=== PATIENT | female | born 1985 | race Caucasian/White ===

== ENCOUNTER 2016-10-05 19:38 | Emergency (ER) | payer OTHER ==
[2016-10-05 19:48] VITALS: BP 122/74; PULSE 81; TEMP 98.4; BMI 34.6
--- NOTE | 2016-10-05 20:20 | PDOC ---
[id number] PROBLEM Time Seen by Provider: 10/05/16 20:19 History Source: Patient Exam Limitations: No Limitations - History of Present Illness Initial Comments: 10/05/16 20:20 CHIEF COMPLAINT: Pelvic pain HISTORY OF PRESENT ILLNESS: This is a 31-year-old female with history of rheumatoid arthritis on daily prednisone who presents to the ED complaining of right-sided pelvic pain and dysuria for one week. She denies fevers/chills, back pain, nausea/vomiting, or any other symptoms. She is uncertain whether she may be . She does report white, non-malodorous vaginal discharge but states she has not had any today. Vital signs on arrival are unremarkable. REVIEW OF SYSTEMS: GENERAL/CONSTITUTIONAL: No fever or chills. No weakness. No weight change. HEAD, EYES, EARS, NOSE AND THROAT: No change in vision. No ear pain or discharge. No sore throat. CARDIOVASCULAR: No chest pain or palpitations. RESPIRATORY: No cough, wheezing, or shortness of breath. GASTROINTESTINAL: No nausea, vomiting, diarrhea or constipation. GENITOURINARY: See HPI. MUSCULOSKELETAL: Right thumb pain. SKIN: No rash or easy bruising. NEUROLOGIC: No headache, vertigo, loss of consciousness, or loss of sensation. PSYCHIATRIC: No depression or anxiety. ENDOCRINE: No increased thirst. No abnormal weight change. HEMATOLOGIC/LYMPHATIC: No anemia, easy bleeding, or history of blood clots. ALLERGIC/IMMUNOLOGIC: No hives or skin allergy. No latex allergy. PHYSICAL EXAM: GENERAL: The patient is awake, alert, and fully oriented, in no acute distress. HEAD: Normal with no signs of trauma. ENT: Pupils equal, round and reactive to light, extraocular movements intact, sclera anicteric, conjunctiva clear. Neck supple. LUNGS: Clear to auscultation bilaterally. Normal excursion. No respiratory distress or use of accessory muscles. CV: RRR, S1/S2, no MRG. Cap refill < 2 sec. ABDOMEN: Soft, non-distended, non-tender. EXTREMITIES: [place] neck and boutonniere deformities. NEUROLOGICAL: Normal speech, normal gait. CN II-XII grossly intact. PSYCH: Normal mood, normal affect. SKIN: Warm, dry, normal turgor, no rashes or lesions noted. QUALITY ASSURANCE DIRECTOR: Normal external exam. Mild right adnexal tenderness. White, thick, non- malodorous vaginal discharge. No CMT. Past History - Past Medical History Allergies/Adverse Reactions: Allergies Allergy/AdvReac Type Severity Reaction Status Date / Time No Known Allergies Allergy Verified 10/05/16 19:45 Home Medications: Ambulatory Orders Levetiracetam [Keppra Xr -] 500 mg PO DAILY 07/24/16 Methotrexate [Mexate -] 2.5 mg PO DAILY 07/24/16 Prednisone 5 mg PO DAILY 07/24/16 Meclizine HCl 25 mg PO TID PRN #21 tablet 07/25/16 Folic Acid 0 mg PO ASDIR 10/05/16 Ibuprofen 600 mg PO Q6H PRN #30 tablet 10/05/16 Asthma: No Cancer: No Cardiac Disorders: No Diabetes: No HTN: No Suicide Attempt (Hx): No Seizures: Yes (epilepsy) Thyroid Disease: No - Reproductive History (#): 2 Para: 2 Cervical CA: No Dysfunctional Uterine Bleeding: No Ectopic : No Endometrial CA: No Polycystic Ovaries: No Therapeutic (s) & number: No Tubal Ligation: No Spontaneous : 0 - Immunization History Immunization Up to Date: No - Psycho/Social/Smoking Cessation Hx Anxiety: No Suicidal Ideation: No Smoking Status: No Smoking History: Never smoked Have you smoked in the past 12 months: No Number of Cigarettes Smoked Daily: 0 Hx Alcohol Use: No Drug/Substance Use Hx: No Substance Use Type: None Hx Substance Use Treatment: No *Physical Exam - Vital Signs Last Vital Signs Temp Pulse Resp BP Pulse Ox 98.4 F 81 18 122/74 100 10/05/16 19:46 10/05/16 19:46 10/05/16 19:46 10/05/16 19:46 10/05/16 19:46 Medical Decision Making - Medical Decision Making 10/05/16 23:23 A/P: 31 year old female with 1) Right thumb pain -Suspect secondary to RA -Xray wet read: no fracture/dislocation of right thumb -Motrin, ice -Finger splint for comfort, and 2) Pelvic pain -U/s reviewed: 2cm right ovarian cyst; IUD in lower uterine segment toward cervical canal -Discussed both of these findings with patient and she will follow up with her commercial sales manager -Treated with diflucan x 1 for suspected vaginal candidiasis -GC/CT sent *DC/Admit/Observation/Transfer Diagnosis at time of Disposition: Pain of right thumb, Pelvic pain, Vaginal candidiasis - Discharge Dispostion Disposition: HOME Condition at time of disposition: Stable Admit: No - Prescriptions Prescriptions: Ibuprofen 600 mg PO Q6H PRN #30 tablet PRN Reason: Pain - Referrals Referrals: Zhen Villarreal MD [Staff Physician] - (lip cutter and scorer) - Patient Instructions Printed Discharge Instructions: DI for Rheumatoid Arthritis, DI for Vaginal Yeast Infection Additional Instructions: -You were given a one-time dose of antibiotics for vaginal yeast infection -You have a right ovarian cyst which may be causing your pain -Follow up with your crib clerk (or ours, referral enclosed) about this and also to have the position of your IUD evaluated as discussed -Take ibuprofen as needed for pain and wear the finger splint for comfort -Return here for any new or worsening symptoms Print Language: VINCENTIAN
[2016-10-05 20:39] LABS: URINE APPEARANCE CLEAR; URINE BILIRUBIN NEGATIVE (NEGATIVE); URINE BLOOD NEGATIVE (NEGATIVE); URINE COLOR YELLOW; URINE GLUCOSE (UA) NEGATIVE (NEGATIVE); URINE KETONE NEGATIVE (NEGATIVE); URINE LEUK ESTERASE NEGATIVE (NEGATIVE); URINE NITRITE NEGATIVE (NEGATIVE); URINE PROTEIN NEGATIVE (NEGATIVE); URINE UROBILINOGEN NEGATIVE E.U./dl (0.2-1.0)
[2016-10-05] MEDS ORDERED: IBUPROFEN 600 MG TABLET (FP) PO ONE ×2 (20:56→21:37)
[2016-10-05] MEDS ORDERED: FLUCONAZOLE 100 MG TABLET (UD) PO ONE (21:56)
[2016-10-05] MEDS ORDERED: FLUCONAZOLE 100 MG TABLET (UD) ONE (22:03)
== END 2016-10-05 22:40 | disposition home or self-care (01) ==
LOC: JER 19:38 → JERFT 19:38
DX: B37.3 Candidiasis of vulva and vagina (principal); N83.291 Other ovarian cyst, right side; M06.841 Other specified rheumatoid arthritis, right hand; Z86.69 Personal history of other diseases of the nervous system and sense organs
CPT/HCPCS: 36415; 73130-TC-RT; 76830-TC; 76856-TC; 81003; 84703; 87086; 87491; 87591; 99281-25

== ENCOUNTER 2017-04-12 19:38 | Emergency (ER) | payer OTHER ==
[2017-04-12 19:48] VITALS: BMI 34.9
[2017-04-12] MEDS ORDERED: MECLIZINE HCL 25 MG TABLET (FP) PO STA (20:17)
--- NOTE | 2017-04-12 20:17 | PDOC ---
History of Present Illness - General History Source: Patient Exam Limitations: No Limitations - History of Present Illness Initial Comments: 04/12/17 20:29 The patient is a 32 year old female with significant past medical history of rheumatoid arthritis, seizure disorder, Mnire's disease on meclizine who presents to the ED for vertigo-like symptoms that began earlier today. Patient reports unsteadiness and dizziness, which she describes as the room spinning. States her symptoms are consistent with her usual vertigo episodes. She also reports 2 days of abdominal discomfort. Patient describes discomfort as a pressure-like sensation starting from her pelvic region and radiating to her back. State she believes it is related to kidney stones because she went to an outside hospital 2 days ago, where they did a urinalysis and test that came out negative. Denies dysuria, hematuria, urgency, or frequency. Denies nausea, vomiting, or diarrhea. The patient denies fever, chills, cough, SOB, chest pain, and palpitations. Allergies: NKDA Social History: No alcohol, tobacco, or drug use reported. Past Surgical History: x2 PCP: N/A <Alla Connolly - Last Filed: 04/12/17 20:29> - General History Source: Patient <Mamadou Escamilla - Last Filed: 04/12/17 22:53> - General Chief Complaint: Lightheaded Stated Complaint: PAIN Time Seen by Provider: 04/12/17 20:11 Past History <Alla Connolly - Last Filed: 04/12/17 20:29> - Past Medical History Asthma: No Cancer: No Cardiac Disorders: No Diabetes: No HTN: No Suicide Attempt (Hx): No Seizures: Yes (epilepsy) Thyroid Disease: No Other medical history: minires disease, arthritis - Reproductive History (#): 2 Para: 2 Cervical CA: No Dysfunctional Uterine Bleeding: No Ectopic : No Endometrial CA: No Polycystic Ovaries: No Therapeutic (s) & number: No Tubal Ligation: No Spontaneous : 0 - Immunization History Immunization Up to Date: No - Psycho/Social/Smoking Cessation Hx Anxiety: No Suicidal Ideation: No Smoking Status: No Smoking History: Never smoked Have you smoked in the past 12 months: No Number of Cigarettes Smoked Daily: 0 Hx Alcohol Use: No Drug/Substance Use Hx: No Substance Use Type: None Hx Substance Use Treatment: No <Mamadou Escamilla - Last Filed: 04/12/17 22:53> - Past Medical History Allergies/Adverse Reactions: Allergies Allergy/AdvReac Type Severity Reaction Status Date / Time No Known Allergies Allergy Verified 04/12/17 19:45 Home Medications: Ambulatory Orders Levetiracetam [Keppra Xr -] 700 mg PO DAILY 07/24/16 Methotrexate [Mexate -] 2.5 mg PO DAILY 07/24/16 Meclizine HCl 25 mg PO TID PRN #21 tablet 07/25/16 Folic Acid 0 mg PO ASDIR 10/05/16 Ibuprofen 600 mg PO Q6H PRN #30 tablet 10/05/16 Adalimumab [Humira] 40 mg SQ WEEKLY 04/12/17 Review of Systems - Review of Systems Able to Perform ROS?: Yes Comments:: 04/12/17 20:30 CONSTITUTIONAL: Absent: fever, no chills, no fatigue EYES: Absent: visual changes ENT: Absent: ear pain, no sore throat CARDIOVASCULAR: Absent: chest pain, no palpitations RESPIRATORY: Absent: cough, no SOB GI: +pelvic discomfort radiating to the back Absent: no nausea, no vomiting, no constipation, no diarrhea GENITOURINARY: Absent: dysuria, no frequency, no hematuria MUSCULOSKELETAL: Absent: no arthralgia, no myalgia SKIN: Absent: rash NEURO: +dizziness and unsteadiness Absent: headache <Alla Connolly - Last Filed: 04/12/17 20:29> *Physical Exam - Vital Signs Last Vital Signs Temp Pulse Resp BP Pulse Ox 98.6 F 68 18 110/54 99 04/12/17 19:41 04/12/17 19:41 04/12/17 19:41 04/12/17 19:41 04/12/17 19:41 - Physical Exam Comments: 04/12/17 20:30 GENERAL: Well-appearing, well-nourished. No apparent distress. HEENT: Normocephalic, atraumatic. PERRL, EOM intact. CARDIOVASCULAR: Normal S1, S2. Regular rate and rhythm. PULMONARY: Clear to auscultation bilaterally. ABDOMEN: Soft, non-distended, non-tender. EXTREMITIES: Normal ROM in all four extremities. No gross deformities. SKIN: Warm, dry. No rash NEUROLOGICAL: No focal neurological deficits. <Alla Connolly - Last Filed: 04/12/17 20:29> - Vital Signs Last Vital Signs Temp Pulse Resp BP Pulse Ox 98.6 F 68 18 110/54 99 04/12/17 19:41 04/12/17 19:41 04/12/17 19:41 04/12/17 19:41 04/12/17 19:41 <Mamadou Escamilla - Last Filed: 04/12/17 22:53> Medical Decision Making - Medical Decision Making 04/12/17 22:53 Dr. Escamilla: The scribe's documentation has been prepared under my direction and personally reviewed by me in its entirery. I confirm that the note above accurately reflects all work, treatment, procedures, and medical decision making performed by me. <Mamadou Escamilla - Last Filed: 04/12/17 22:53> *DC/Admit/Observation/Transfer - Attestations Scribe Attestion: 04/12/17 20:30 Documentation prepared by Alla Connolly, acting as medical facilities section director for Mamadou Escamilla MD/DO. <Alla Connolly - Last Filed: 04/12/17 20:29> - Discharge Dispostion Admit: No <Mamadou Escamilla - Last Filed: 04/12/17 22:53> Diagnosis at time of Disposition: Abdominal pain Qualifiers: Abdominal location: generalized Qualified Code(s): R10.84 - Generalized abdominal pain Constipation Qualifiers: Constipation type: unspecified constipation type Qualified Code(s): K59.00 - Constipation, unspecified - Discharge Dispostion Disposition: HOME Condition at time of disposition: Stable - Referrals Referrals: STAFF,NOT ON [Primary Care Provider] - Renato Gastelum MD [Staff Physician] - - Patient Instructions Printed Discharge Instructions: DI for Constipation Print Language: AZERI
[2017-04-12] MEDS ORDERED: MECLIZINE HCL 25 MG TABLET (FP) ONE (20:25)
[2017-04-12 20:49] LABS: URINE APPEARANCE CLEAR; URINE BILIRUBIN NEGATIVE (NEGATIVE); URINE BLOOD NEGATIVE (NEGATIVE); URINE COLOR LTYELLOW; URINE GLUCOSE (UA) NEGATIVE (NEGATIVE); URINE KETONE NEGATIVE (NEGATIVE); URINE NITRITE NEGATIVE (NEGATIVE); URINE PROTEIN NEGATIVE (NEGATIVE); URINE UROBILINOGEN NEGATIVE mg/dL (0.2-1.0)
[2017-04-12 20:59] LABS: URINE LEUK ESTERASE TRACE (NEGATIVE)
[2017-04-12 21:03] LABS: URINE BACTERIA RARE /hpf (NONE SEEN); URINE MUCUS RARE; URINE RBC <1 /hpf (0-3); URINE WBC 2 /hpf (3-5)
[2017-04-12 23:10] VITALS: BP 134/78; PULSE 82; TEMP 98.7
== END 2017-04-12 23:10 | disposition home or self-care (01) ==
LOC: JER 19:38
DX: R10.84 Generalized abdominal pain (principal); K59.00 Constipation, unspecified; M06.9 Rheumatoid arthritis, unspecified; G40.909 Epilepsy, unspecified, not intractable, without status epilepticus; H81.09 Meniere's disease, unspecified ear
CPT/HCPCS: 74176; 81003; 81015; 84703; 99284-25

== ENCOUNTER 2017-05-16 15:46 | Emergency (ER) | payer OTHER ==
[2017-05-16 15:53] VITALS: BP 113/72; PULSE 62; TEMP 98.5; BMI 34.9
[2017-05-16] MEDS ORDERED: ONDANSETRON 4 MG/2 ML VIAL IVPB ONE (17:29)
[2017-05-16] MEDS ORDERED: SODIUM CHLORIDE 1,000 ML IV STA (17:29)
--- NOTE | 2017-05-16 17:38 | PDOC ---
History of Present Illness - General History Source: Patient Exam Limitations: No Limitations - History of Present Illness Initial Comments: 05/16/17 17:49 Patient is a 32-year-old female history of rheumatoid arthritis, seizure disorder, vertigo presents emergency department and states "I'm dizzy" patient reports lower abdominal discomfort, bleeding noted on paper when urinating no blood in toilet, has been using one pad per day with mild bloodstain. Patient is concerned she may be and having a miscarriage. Patient denies any fever, no nausea vomiting, no neurosensory deficits, no diaphoresis chest pain or shortness of breath. Allergies: No known allergies Medications: See medication list Family History: Non-contributory Social History: Denies smoking, alcohol use, or IVDU Vital signs on arrival are noted for blood pressure of 113/72, heart rate of 62 , afebrile at 98.5. Review of Systems GENERAL/CONSTITUTIONAL: No fever or chills. No weakness. No weight change. HEAD, EYES, EARS, NOSE AND THROAT: No change in vision. No ear pain or discharge. No sore throat. CARDIOVASCULAR: No chest pain or shortness of breath. RESPIRATORY: No cough, wheezing, or hemoptysis. GASTROINTESTINAL: No nausea, vomiting, diarrhea or constipation. No rectal bleeding. GENITOURINARY: No dysuria, frequency, or change in urination. Mild hematuria, lower abdominal discomfort MUSCULOSKELETAL: No joint or muscle swelling or pain. No neck or back pain. SKIN : No rash or easy bruising. NEUROLOGIC: No headache, vertigo, loss of consciousness, or loss of sensation. PSYCHIATRIC: Anxious. ENDOCRINE: No increased thirst. No abnormal weight change. HEMATOLOGIC/LYMPHATIC: No anemia, easy bleeding, or history of blood clots. ALLERGIC/IMMUNOLOGIC: No hives or skin allergy. No latex allergy. Physical Exam: GENERAL: The patient is awake, alert, and fully oriented, in no acute distress. HEAD: Normal with no signs of trauma. EYES: Pupils equal, round and reactive to light, extraocular movements intact, sclera anicteric, conjunctiva clear. ENT: Ears normal, nares patent, oropharynx clear without exudates. Moist mucous membranes. No uvula deviation NECK: Normal range of motion, supple without lymphadenopathy, JVD, or masses. LUNGS: Breath sounds equal, clear to auscultation bilaterally. No wheezes, and no crackles. HEART: Regular rate and rhythm, normal S1 and S2 without murmur, rub or gallop. ABDOMEN: Soft, lower mid abdominal tenderness, normoactive bowel sounds. No guarding, no rebound. No masses. No bruising or abrasions RECTAL : Guaiac negative, normal rectal tone. MUSCULOSKELETAL: Normal range of motion, no edema. No clubbing or cyanosis. No cords, erythema, or tenderness. No CVA Tenderness with fist palpation. NEUROLOGICAL: Cranial nerves II through XII grossly intact. Normal speech, normal gait. PSYCH: Anxious. SKIN: Warm, Dry, normal turgor, no rashes or lesions noted. 05/16/17 19:59 <Xochitl Nelson - Last Filed: 05/16/17 19:59> <Alona Dale - Last Filed: 05/16/17 20:53> - General Chief Complaint: Vaginal Bleeding Stated Complaint: LIGHTHEADED,vag bleed, hematurea, abd pain Time Seen by Provider: 05/16/17 17:07 Past History - Past Medical History Asthma: No Cancer: No Cardiac Disorders: No Diabetes: No HTN: No Suicide Attempt (Hx): No Seizures: Yes (epilepsy) Thyroid Disease: No Other medical history: arithritis, menier's disease - Reproductive History (#): 2 Para: 2 Cervical CA: No Dysfunctional Uterine Bleeding: No Ectopic : No Endometrial CA: No Polycystic Ovaries: No Therapeutic (s) & number: No Tubal Ligation: No Spontaneous : 0 - Immunization History Immunization Up to Date: No - Psycho/Social/Smoking Cessation Hx Anxiety: No Suicidal Ideation: No Smoking Status: No Smoking History: Never smoked Have you smoked in the past 12 months: No Number of Cigarettes Smoked Daily: 0 Information on smoking cessation initiated: No Hx Alcohol Use: No Drug/Substance Use Hx: No Substance Use Type: None Hx Substance Use Treatment: No <Xochitl Nelson - Last Filed: 05/16/17 19:59> <Alona Dale - Last Filed: 05/16/17 20:53> - Past Medical History Allergies/Adverse Reactions: Allergies Allergy/AdvReac Type Severity Reaction Status Date / Time No Known Allergies Allergy Verified 05/16/17 15:49 Home Medications: Ambulatory Orders Levetiracetam [Keppra Xr -] 700 mg PO DAILY 07/24/16 Methotrexate [Mexate -] 2.5 mg PO DAILY 07/24/16 Meclizine HCl 25 mg PO TID PRN #21 tablet 07/25/16 Folic Acid 0 mg PO ASDIR 10/05/16 Ibuprofen 600 mg PO Q6H PRN #30 tablet 10/05/16 Adalimumab [Humira] 40 mg SQ WEEKLY 04/12/17 *Physical Exam - Vital Signs Last Vital Signs Temp Pulse Resp BP Pulse Ox 98.5 F 62 18 113/72 100 05/16/17 15:50 05/16/17 15:50 05/16/17 15:50 05/16/17 15:50 05/16/17 15:50 <Xochitl Nelson - Last Filed: 05/16/17 19:59> - Vital Signs Last Vital Signs Temp Pulse Resp BP Pulse Ox 98.5 F 62 18 113/72 100 05/16/17 15:50 05/16/17 15:50 05/16/17 15:50 05/16/17 15:50 05/16/17 15:50 <Alona Dale - Last Filed: 05/16/17 20:53> ED Treatment Course - LABORATORY CBC & Chemistry Diagram: 05/16/17 18:30 <Xochitl Nelson - Last Filed: 05/16/17 19:59> - LABORATORY CBC & Chemistry Diagram: 05/16/17 18:30 05/16/17 19:45 - ADDITIONAL ORDERS Additional order review: Laboratory Results 05/16/17 05/16/17 05/16/17 19:45 19:45 18:30 INR Sodium Cancelled Potassium Cancelled Chloride Cancelled Carbon Dioxide Cancelled Anion Gap Cancelled BUN Cancelled Creatinine Cancelled Creat Clearance w eGFR Cancelled Random Glucose Cancelled Calcium Cancelled Total Bilirubin Cancelled AST Cancelled ALT Cancelled Alkaline Phosphatase Cancelled Total Protein Cancelled Albumin Cancelled Beta HCG, Quant < 1.0 Urine Color Straw Urine Appearance Clear Urine pH 7.0 Urine Protein Negative Urine Glucose (UA) Negative Urine Ketones Negative Urine Blood 3+ H Urine Nitrite Negative Urine Bilirubin Negative Urine Urobilinogen Negative Ur Leukocyte Esterase Negative 05/16/17 18:30 INR 1.11 Sodium Potassium Chloride Carbon Dioxide Anion Gap BUN Creatinine Creat Clearance w eGFR Random Glucose Calcium Total Bilirubin AST ALT Alkaline Phosphatase Total Protein Albumin Beta HCG, Quant Urine Color Urine Appearance Urine pH Urine Protein Urine Glucose (UA) Urine Ketones Urine Blood Urine Nitrite Urine Bilirubin Urine Urobilinogen Ur Leukocyte Esterase 05/16/17 18:30 RBC 5.16 MCV 81.9 MCHC 32.9 RDW 13.4 MPV 11.0 Neutrophils % 47.8 D Lymphocytes % 40.3 H D Monocytes % 7.6 Eosinophils % 3.6 D Basophils % 0.7 - Medications Given in the ED: ED Medications Discontinued Medications Generic Name Dose Route Start Last Admin Trade Name Adi PRN Reason Stop Dose Admin Sodium Chloride 1,000 mls @ 1,000 mls/hr 05/16/17 17:29 05/16/17 18:42 Normal Saline - IV 05/16/17 18:28 1,000 mls/hr ASDIR STA Administration Ondansetron HCl 4 mg 05/16/17 17:29 05/16/17 18:52 Zofran Injection IVPB 05/16/17 17:30 4 mg ONCE ONE Administration <Alona Dale - Last Filed: 05/16/17 20:53> Medical Decision Making - Medical Decision Making 05/16/17 17:51 A/P: Patient here for dizziness, bleeding noted after urinating, lower abdominal discomfort denies any back pain, no fever. Patient denies any chest pain or shortness of breath. Plan: CBC, CMP, INR, beta hCG Urinalysis, urine culture Based upon results will consider transvaginal ultrasound 05/16/17 18:29 Laboratory Results - last 24 hr 05/16/17 05/16/17 05/16/17 18:30 18:30 18:30 WBC 6.9 RBC 5.16 Hgb 13.9 D Hct 42.3 MCV 81.9 MCH 26.9 MCHC 32.9 RDW 13.4 Plt Count 220 D MPV 11.0 Neutrophils % 47.8 D Lymphocytes % 40.3 H D Monocytes % 7.6 Eosinophils % 3.6 D Basophils % 0.7 INR 1.11 Beta HCG, Quant < 1.0 Patient with negative , wbc's unremarkable. After patient was made aware that was negative, she stated that she thinks bleeding may be cause by taking plan B on May 05. Patient reports also taking it last month. Has an appointment tomorrow for her STERNMAN to have norplant to prevent I am signing this patient out to my colleague: GUIDO Dale In brief, this patient is being seen in the ED for a chief complaint of: Weakness, dizziness, blood noted on papare when urinating. I have completed the initial assessment interview note and have ordered: CBC, CMP, urinalysis, urine culture, beta hCG. I have reviewed the following results: CBC and beta hCG Pending results are: Urinalysis, urine culture and CMP Plan for disposition is as follows: Pending <Xochitl Nelson - Last Filed: 05/16/17 19:59> *DC/Admit/Observation/Transfer <Xochitl Nelson - Last Filed: 05/16/17 19:59> <Alona Dale - Last Filed: 05/16/17 20:53> Diagnosis at time of Disposition: Mild dehydration - Discharge Dispostion Disposition: HOME Condition at time of disposition: Improved - Referrals Referrals: STAFF,NOT ON [Primary Care Provider] - - Patient Instructions - Post Discharge Activity Assessment/Plan pt feels better after IVF and zofran. pt is drinking po well, wants to go home. chemistry is hemolysed, pt refused a repeat blood draw as pt is a hard stick. vitals are stable. pt is ambulatory steady gait no dizzyness. dc with her friend all dc inst discussed pt understands the plan of care. <Alona Dale - Last Filed: 05/16/17 20:53>
[2017-05-16] MEDS ORDERED: ONDANSETRON 4 MG/2 ML VIAL ONE ×2 (17:53→18:45)
[2017-05-16 18:48] LABS: BASOPHIL 0.7 % (0-2.0); EOSINOPHIL 3.6 % (0-4.5); MCH 26.9 pg (25.7-33.7); MCHC 32.9 g/dl (32.0-36.0); MEAN CELL VOLUME 81.9 fl (80-96); NEUTROPHILS 47.8 % (42.8-82.8); PLATELET COUNT 220 K/MM3 (134-434); RDW 13.4 % (11.6-15.6); WHITE BLOOD COUNT 6.9 K/mm3 (4.0-10.0)
[2017-05-16 19:12] LABS: INR 1.11 (0.82-1.09); PROTHROMBIN TIME (PATIENT) 12.2 SEC (9.98-11.88)
[2017-05-16 20:04] LABS: URINE APPEARANCE CLEAR; URINE BILIRUBIN NEGATIVE (NEGATIVE); URINE BLOOD 3+ (NEGATIVE); URINE COLOR STRAW; URINE GLUCOSE (UA) NEGATIVE (NEGATIVE); URINE KETONE NEGATIVE (NEGATIVE); URINE LEUK ESTERASE NEGATIVE (NEGATIVE); URINE NITRITE NEGATIVE (NEGATIVE); URINE PROTEIN NEGATIVE (NEGATIVE); URINE UROBILINOGEN NEGATIVE mg/dL (0.2-1.0)
[2017-05-16 20:48] LABS: URINE MUCUS RARE; URINE RBC 1 /hpf (0-3); URINE WBC 1 /hpf (3-5)
== END 2017-05-16 21:03 | disposition home or self-care (01) ==
LOC: JER 15:46 → JERFT 15:46
PROC: 3E033GC Introduction of Other Therapeutic Substance into Peripheral Vein, Percutaneous Approach (ICD-10-PCS; principal; 2017-05-16)
PROC: 3E0337Z Introduction of Electrolytic and Water Balance Substance into Peripheral Vein, Percutaneous Approach (ICD-10-PCS; 2017-05-16)
DX: E86.0 Dehydration (principal); M06.9 Rheumatoid arthritis, unspecified; G40.909 Epilepsy, unspecified, not intractable, without status epilepticus
CPT/HCPCS: 36415; 81003; 81015; 84702; 85025; 85610; 86850; 86900; 86901; 87086; 99281-25

== ENCOUNTER 2018-02-06 10:58 | Emergency (ER) | payer OTHER ==
[2018-02-06 11:04] VITALS: BMI 32.3
[2018-02-06] MEDS ORDERED: morphine CARPU-JECT 4 MG/1 ML DISP.SYRIN IVPUSH ONE (11:29)
[2018-02-06] MEDS ORDERED: SODIUM CHLORIDE 1,000 ML IV STA (11:29)
[2018-02-06] MEDS ORDERED: ONDANSETRON 4 MG/2 ML VIAL IVPB ONE (11:29)
--- NOTE | 2018-02-06 11:32 | PDOC ---
History of Present Illness - General History Source: Patient, Family Exam Limitations: No Limitations - History of Present Illness Initial Comments: 02/06/18 11:33 The patient is a 33 year old female with a significant PMH of seizure disorder, vertigo, and degenerative arthritis who presents to the emergency department with right lower quadrant pain since yesterday. The patient describes the right lower quadrant pain as persistent, constant, pulling and burning in sensation. The patient endorses nausea, dizziness, and some episodes of non-bloody, non- bilious diarrhea. The patient denies history of kidney stones or appendicitis. The patient denies possible . The patient denies chest pain, shortness of breath, headache and dizziness. Denies fever, chills, vomit, diarrhea and constipation. Denies dysuria, frequency, urgency and hematuria. Allergies: NKDA Social History: No alcohol, tobacco, or drug use reported. Past Surgical History: x2 PCP: N/A <Florencia Munoz - Last Filed: 02/06/18 14:14> - General History Source: Patient, Family Exam Limitations: No Limitations <Dirk Lucas - Last Filed: 02/06/18 14:20> - General Chief Complaint: Pain Stated Complaint: PAIN Time Seen by Provider: 02/06/18 11:23 Past History <Florencia Munoz - Last Filed: 02/06/18 14:14> - Past Medical History Asthma: No Cancer: No Cardiac Disorders: No COPD: No DVT: No Diabetes: No HTN: No Seizures: Yes (epilepsy) Thyroid Disease: No Other medical history: R.A,VERTIGO - Reproductive History (#): 2 Para: 2 Cervical CA: No Dysfunctional Uterine Bleeding: No Ectopic : No Endometrial CA: No Polycystic Ovaries: No Therapeutic (s) & number: No Tubal Ligation: No Spontaneous : 0 - Immunization History Immunization Up to Date: No - Suicide/Smoking/Psychosocial Hx Smoking Status: No Smoking History: Never smoked Have you smoked in the past 12 months: No Number of Cigarettes Smoked Daily: 0 Information on smoking cessation initiated: No Hx Alcohol Use: No Drug/Substance Use Hx: No Substance Use Type: None Hx Substance Use Treatment: No <Dirk Lucas - Last Filed: 02/06/18 14:20> - Past Medical History Allergies/Adverse Reactions: Allergies Allergy/AdvReac Type Severity Reaction Status Date / Time No Known Allergies Allergy Verified 02/06/18 11:01 Home Medications: Ambulatory Orders levETIRAcetam [Keppra Xr -] 750 mg PO BID 07/24/16 Folic Acid 1 mg PO ASDIR 10/05/16 Adalimumab [Humira] 40 mg SQ ASDIR 04/12/17 Naproxen 500 mg PO BID PRN #20 tablet 02/06/18 Review of Systems - Review of Systems Able to Perform ROS?: Yes Comments:: 02/06/18 11:34 GENERAL/CONSTITUTIONAL: No fever or chills. No weakness. HEAD, EYES, EARS, NOSE AND THROAT: No change in vision. No ear pain or discharge. No sore throat. CARDIOVASCULAR: No chest pain or shortness of breath. RESPIRATORY: No cough, wheezing, or hemoptysis. GASTROINTESTINAL: (+) Right lower quadrant pain. (+) Nausea. No vomiting, diarrhea or constipation. GENITOURINARY: No dysuria, frequency, or change in urination. MUSCULOSKELETAL: No joint or muscle swelling or pain. No neck or back pain. SKIN: No rash NEUROLOGIC: (+) Dizziness. No headache, loss of consciousness, or change in strength/sensation. ENDOCRINE: No increased thirst. No abnormal weight change. HEMATOLOGIC/LYMPHATIC: No anemia, easy bleeding, or history of blood clots. ALLERGIC/IMMUNOLOGIC: No hives or skin allergy. <Florencia Munoz - Last Filed: 02/06/18 14:14> *Physical Exam - Vital Signs Last Vital Signs Temp Pulse Resp BP Pulse Ox 98.6 F 75 18 111/83 100 02/06/18 11:02 02/06/18 11:02 02/06/18 11:02 02/06/18 11:02 02/06/18 11:02 - Physical Exam Comments: 02/06/18 11:34 GENERAL: (+) Uncomfortable appearing. Awake, alert, and fully oriented. HEAD: No signs of trauma EYES: PERRLA, EOMI, sclera anicteric, conjunctiva clear LUNGS: Breath sounds equal, clear to auscultation bilaterally. No wheezes, and no crackles HEART: Regular rate and rhythm, normal S1 and S2, no murmurs, rubs or gallops ABDOMEN: (+) Right lower quadrant tender to palpation. Soft, normoactive bowel sounds. No guarding, no rebound. No masses. EXTREMITIES: Normal range of motion, no edema. No clubbing or cyanosis. No cords, erythema, or tenderness NEUROLOGICAL: Cranial nerves II through XII grossly intact. Normal speech. SKIN: Warm, Dry, normal turgor, no rashes or lesions noted. <Florencia Munoz - Last Filed: 02/06/18 14:14> - Vital Signs Last Vital Signs Temp Pulse Resp BP Pulse Ox 98.6 F 75 18 111/83 100 02/06/18 11:02 02/06/18 11:02 02/06/18 11:02 02/06/18 11:02 02/06/18 11:02 <Dirk Lucas - Last Filed: 02/06/18 14:20> ED Treatment Course - LABORATORY CBC & Chemistry Diagram: 02/06/18 11:35 02/06/18 11:35 <Florencia Munoz - Last Filed: 02/06/18 14:14> - LABORATORY CBC & Chemistry Diagram: 02/06/18 11:35 02/06/18 11:35 - RADIOLOGY Radiology Studies Ordered: Category Date Time Status SPIRAL- RENAL-STONE CT [CT] Stat CT Scan 02/06/18 11:29 Ordered TRANSVAGINAL ULTRASOUND US [US] Stat Ultrasound 02/06/18 11:29 Ordered <Dirk Lucas - Last Filed: 02/06/18 14:20> Medical Decision Making - Medical Decision Making 02/06/18 14:12 Imaging: Renal Stone CT Impression: No evidence of urinary tract calculus or obstructive uropathy. Prominent wall in the sigmoid colon and rectum is presumably secondary to underdistention rather than a mild infectious versus inflammatory proctitis colitis. A 2.0 x 1.8 cm right adnexal cyst. Reported by: Dr. Hendrix Imaging: Bladder/Pelvic US Impression: No evidence of ovarian torsion. A 2.3 x 2.1 simple appearing right ovarian cyst. Reported by: Dr. Hendrix <Florencia Munoz - Last Filed: 02/06/18 14:14> - Medical Decision Making 02/06/18 11:30 A portion of this note was documented by scribe services under my direction. I have reviewed the details of the note, within reason, and agree with the documentation with the following case summary and management plan written by me. Patient treated in the ED. Nursing notes are reviewed and incorporated into the medical decision-making. Vital signs reviewed. Peripheral IV access obtained by the nurse, laboratory studies are drawn and sent, reviewed and interpreted by myself. Vital Signs Temp Pulse Resp BP Pulse Ox 98.6 F 75 18 111/83 100 02/06/18 11:02 02/06/18 11:02 02/06/18 11:02 02/06/18 11:02 02/06/18 11:02 33-year-old female with past medical history of seizure disorder presents with right lower quadrant pain for 2 days. Patient reports persistent pulling and burning like pain in the right lower quadrant radiating to the right flank. Denies dysuria or hematuria but does endorse nausea. No vomiting or fevers. Patient denies being currently . Differential includes renal colic, pyelonephritis, ovarian cyst rupture, ovarian torsion, cystitis. Labs, urinalysis, CAT scan the abdomen pelvis and transvaginal ultrasound and reassess. 02/06/18 14:16 Ultrasound demonstrates a 2.3 x 2.1 cm right ovarian cyst. CAT scan the head and pelvis demonstrates a kidney stones. Also confirming right adnexal cyst. Noted to have prominent wall sigmoid colon: A rectum present was second her to under distention. I do not suspect inflammatory proctitis or colitis at this time. CBC, BMP 02/06/18 11:35 02/06/18 11:35 CMP Sodium 141 mmol/L (136-145) 02/06/18 11:35 Potassium 4.3 mmol/L (3.5-5.1) 02/06/18 11:35 Chloride 109 mmol/L (98-107) H 02/06/18 11:35 Carbon Dioxide 25 mmol/L (21-32) 02/06/18 11:35 Anion Gap 7 (8-16) L 02/06/18 11:35 BUN 8 mg/dL (7-18) 02/06/18 11:35 Creatinine 0.7 mg/dL (0.55-1.02) 02/06/18 11:35 Creat Clearance w eGFR > 60 (>60) 02/06/18 11:35 Random Glucose 86 mg/dL (74-106) 02/06/18 11:35 Calcium 8.9 mg/dL (8.5-10.1) 02/06/18 11:35 Total Bilirubin 0.4 mg/dL (0.2-1.0) D 02/06/18 11:35 AST 14 U/L (15-37) L 02/06/18 11:35 ALT 21 U/L (12-78) 02/06/18 11:35 Alkaline Phosphatase 117 U/L (45-117) 02/06/18 11:35 Total Protein 7.5 g/dl (6.4-8.2) 02/06/18 11:35 Albumin 3.9 g/dl (3.4-5.0) 02/06/18 11:35 Lipase 132 U/L (73-393) 02/06/18 11:35 Serum , Qual Negative 02/06/18 11:35 Urine Test Results Urine Color Straw 02/06/18 13:30 Urine Appearance Clear 02/06/18 13:30 Urine pH 7.0 (5.0-8.0) 02/06/18 13:30 Ur Specific [place] 1.003 (1.001-1.035) 02/06/18 13:30 Urine Protein Negative (NEGATIVE) 02/06/18 13:30 Urine Glucose (UA) Negative (NEGATIVE) 02/06/18 13:30 Urine Ketones Negative (NEGATIVE) 02/06/18 13:30 Urine Blood Negative (NEGATIVE) 02/06/18 13:30 Urine Nitrite Negative (NEGATIVE) 02/06/18 13:30 Urine Bilirubin Negative (<2.0 mg/dL) 02/06/18 13:30 Ur Leukocyte Esterase Negative (NEGATIVE) 02/06/18 13:30 I suspect the patient has a ruptured ovarian cyst. The patient reports feeling better. 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 I do not suspect this is colitis or kidney stone a pyonephritis at this time. Patient states that she'll follow-up with her doctor. I discussed the physical exam findings, ancillary test results and final diagnoses with the patient. I answered all of the patient's questions. The patient was satisfied with the care received and felt comfortable with the discharge plan and treatment plan. The patient will call their primary care physician within 24 hours to arrange follow-up and will return to the Emergency Department with any new, persistant or worsening symptoms. <Dirk Lucas - Last Filed: 02/06/18 14:20> *DC/Admit/Observation/Transfer - Attestations Scribe Attestion: 02/06/18 11:36 Documentation prepared by Florencia Munoz, acting as medical typist for Dirk Lucas MD. <Floerncia Munoz - Last Filed: 02/06/18 14:14> - Discharge Dispostion Decision to Admit order: No <Dirk Lucas - Last Filed: 02/06/18 14:20> Diagnosis at time of Disposition: Ovarian cyst Qualifiers: Laterality: right Qualified Code(s): N83.201 - Unspecified ovarian cyst, right side - Discharge Dispostion Disposition: HOME Condition at time of disposition: Improved - Prescriptions Prescriptions: Naproxen 500 mg PO BID PRN #20 tablet PRN Reason: Pain - Referrals Referrals: Katherin Lewis MD [Primary Care Provider] - - Patient Instructions Printed Discharge Instructions: DI for Ovarian Cyst Additional Instructions: Your ultrasound and CT scan shows a ~2 cm right ovarian cyst. 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 Take 500 mg naproxen every 12 hours as needed for pain. It may take several days before your symptoms improve. Take a copy of your ultrasound and CT scan to your doctor. Print Language: ETHIOPIAN
[2018-02-06] MEDS ORDERED: morphine SULFATE 4 MG/ML VIAL ONE (11:43)
[2018-02-06] MEDS ORDERED: ONDANSETRON 4 MG/2 ML VIAL ONE (11:43)
[2018-02-06 11:44] LABS: BASO % 0.6 % (0-2.0); EOS % 3.7 % (0-4.5); HEMATOCRIT 40.9 % (32.4-45.2); HEMOGLOBIN 13.7 GM/dL (10.7-15.3); LYMPH % 42.7 % (8-40); MCH 26.3 pg (25.7-33.7); MCHC 33.5 g/dl (32.0-36.0); MEAN CELL VOLUME 78.5 fl (80-96); MONO % 6.2 % (3.8-10.2); NEUT % 46.8 % (42.8-82.8); PLATELET COUNT 173 K/MM3 (134-434); RBC 5.21 M/mm3 (3.60-5.2); RDW 13.5 % (11.6-15.6); WHITE BLOOD COUNT 6.3 K/mm3 (4.0-10.0)
[2018-02-06 12:05] LABS: ALBUMIN 3.9 g/dl (3.4-5.0); ANION GAP 7 (8-16); BILIRUBIN,TOTAL 0.4 mg/dL (0.2-1.0); BLOOD UREA NITROGEN 8 mg/dL (7-18); CALCIUM 8.9 mg/dL (8.5-10.1); CHLORIDE 109 mmol/L (98-107); CO2 25 mmol/L (21-32); CREATININE 0.7 mg/dL (0.55-1.02); GLUCOSE,RANDOM 86 mg/dL (74-106); LIPASE 132 U/L (73-393); POTASSIUM 4.3 mmol/L (3.5-5.1); SGOT/AST 14 U/L (15-37); SGPT/ALT 21 U/L (12-78); SODIUM 141 mmol/L (136-145); TOT PROT 7.5 g/dl (6.4-8.2)
[2018-02-06 12:06] LABS: ALK PHOS 117 U/L (45-117)
[2018-02-06 13:54] LABS: HCG,QUALITATIVE URINE NEGATIVE; URINE APPEARANCE CLEAR; URINE BILIRUBIN NEGATIVE (<2.0 mg/dL); URINE COLOR STRAW; URINE GLUCOSE (UA) NEGATIVE (NEGATIVE); URINE KETONE NEGATIVE (NEGATIVE); URINE LEUK ESTERASE NEGATIVE (NEGATIVE); URINE NITRITE NEGATIVE (NEGATIVE); URINE PROTEIN NEGATIVE (NEGATIVE); URINE UROBILINOGEN NEGATIVE mg/dL (0.2-1.0)
[2018-02-06] MEDS ORDERED: KETOROLAC TROMETHAMINE 30 MG/1 ML VIAL IVPUSH ONE (14:06)
[2018-02-06] MEDS ORDERED: KETOROLAC TROMETHAMINE 30 MG/1 ML VIAL ONE (14:14)
[2018-02-06 14:39] VITALS: BP 108/79; PULSE 73; TEMP 98.3
== END 2018-02-06 14:43 | disposition home or self-care (01) ==
LOC: JER 10:58
PROC: 3E033NZ Introduction of Analgesics, Hypnotics, Sedatives into Peripheral Vein, Percutaneous Approach (ICD-10-PCS; principal; 2018-02-06)
PROC: 3E0333Z Introduction of Anti-inflammatory into Peripheral Vein, Percutaneous Approach (ICD-10-PCS; 2018-02-06)
PROC: 3E033GC Introduction of Other Therapeutic Substance into Peripheral Vein, Percutaneous Approach (ICD-10-PCS; 2018-02-06)
DX: N83.201 Unspecified ovarian cyst, right side (principal); G40.909 Epilepsy, unspecified, not intractable, without status epilepticus; M06.80 Other specified rheumatoid arthritis, unspecified site
CPT/HCPCS: 36415; 74176; 76856-TC; 80053; 81003; 83690; 84703; 85025; 87086; 96374; 96375; 99282-25; J7030